=== PATIENT | male | born 1965 | race American Indian/Alaskan Native ===

== ENCOUNTER 2020-06-13 19:32 | Inpatient (IN) | payer OTHER ==
--- NOTE | 2020-06-13 20:07 | Consultation ---
History of Present Illness Consult date: 06/13/20 Medications and Allergies Allergies Allergy/AdvReac Type Severity Reaction Status Date / Time No Known Allergies Allergy Unverified 08/31/13 20:03 Home Medications Medication Instructions Recorded Confirmed Last Taken Type Amoxicillin [Trimox CAP] 500 mg PO Q8H #21 capsule 08/31/13 Unknown Rx predniSONE [Deltasone] 20 mg PO TID #15 tablet 08/31/13 Unknown Rx Physical Examination - Vital Signs Vital Signs: Vital Signs Temp Pulse Resp BP Pulse Ox 98.1 F 106 H 16 158/92 99 06/13/20 19:37 06/13/20 19:37 06/13/20 19:37 06/13/20 19:37 06/13/20 19:37 Results - Laboratory Findings CBC and BMP: 06/13/20 20:18 06/13/20 20:18 Abnormal Lab Findings: Abnormal Labs 06/13/20 19:58 POC Glucose 225 H Assessment and Plan [facility] Date of Service: 06/13/2020 19:43:54 Impression: Rule Out Acute Ischemic Stroke Right Hemispheric Infarct Comments/Sign-Out: left sided weakness, left sided ataxia (unclear if this is due to weakness or true ataxia), left facial droop, slurred speech, and left sided numbness- concerning for right hemispheric versus brainstem stroke Mechanism of Stroke: Not Clear Metrics: Last Known Well: 05/30/2020 12:00:00 [facility] Notification Time: 06/13/2020 19:43:18 Arrival Time: 06/13/2020 19:43:00 Stamp Time: 06/13/2020 19:43:54 Time First Login Attempt: 06/13/2020 19:47:14 Video Start Time: 06/13/2020 19:47:14 Symptoms: left sided numbness, difficulty walking NIHSS Start Assessment Time: 06/13/2020 19:52:12 Patient is not a candidate for Alteplase/Activase. Patient was not deemed candidate for Alteplase/Activase thrombolytics because of Last Well Known Above 4.5 Hours. Video End Time: 06/13/2020 20:00:44 CT head was reviewed and results were: hypodensity in right kirby radiata- ?subacute stroke Lower Likelihood of Large Vessel Occlusion but Following Stat Studies are Recommended CTA Head and Neck. Reviewed, No Indication of Large Vessel Occlusive Thrombus, Patient is not an SID Candidate. ED Physician notified of diagnostic impression and management plan on 06/13/2020 20:04:52 Our recommendations are outlined below. Recommendations: Activate Stroke Protocol Admission/Order Set Stroke/Telemetry Floor Neuro Checks Bedside Swallow Eval DVT Prophylaxis IV Fluids, Normal Saline Head of Bed 30 Degrees Euglycemia and Avoid Hyperthermia (PRN Acetaminophen) Antiplatelet Therapy Recommended Routine Consultation with Inhouse Neurology for Follow up Care Sign Out: Discussed with Emergency Department Provider History of Present Illness: Patient was brought by private transportation with symptoms of left sided numbness, difficulty walking 54 year old man presents with left sided numbness, difficulty walking, and off balance. He began having left arm numbness 2 weeks ago and it has been constant since it began (with some mild improvement yesterday but never completely resolved). He also has numbnes on the left side of his torso. The difficulty walking began 2 days ago and has been constant and worsening. Examination: BP(158/92), Pulse(106), Blood Glucose(225) 1A: Level of Consciousness - Alert; keenly responsive + 0 1B: Ask Month and Age - Both Questions Right + 0 1C: Blink Eyes & Squeeze Hands - Performs Both Tasks + 0 2: Test Horizontal Extraocular Movements - Normal + 0 3: Test Visual Cedeno - No Visual Loss + 0 4: Test Facial Palsy (Use Grimace if Obtunded) - Minor paralysis (flat nasolabial fold, smile asymmetry) + 1 5A: Test Left Arm Motor Drift - Drift, but doesn't hit bed + 1 5B: Test Right Arm Motor Drift - No Drift for 10 Seconds + 0 6A: Test Left Leg Motor Drift - Drift, but doesn't hit bed + 1 6B: Test Right Leg Motor Drift - No Drift for 5 Seconds + 0 7: Test Limb Ataxia (FNF/Heel-Alexis) - Ataxia in 2 Limbs + 2 8: Test Sensation - Mild-Moderate Loss: Less Sharp/More Dull + 1 9: Test Language/Aphasia - Normal; No aphasia + 0 10: Test Dysarthria - Mild-Moderate Dysarthria: Slurring but can be understood + 1 11: Test Extinction/Inattention - No abnormality + 0 NIHSS Score: 7 Patient/Family was informed the Neurology Consult would happen via TeleHealth consult by way of interactive audio and video telecommunications and consented to receiving care in this manner. Due to the immediate potential for life-threatening deterioration due to underly ing acute neurologic illness, I spent 25 minutes providing critical care. This time includes time for face to face visit via telemedicine, review of medical records, imaging studies and discussion of findings with providers, the patient and/or family. Dr Glenda Lerma [facility] Case [id number]
--- NOTE | 2020-06-13 20:07 | Cat Scan Report ---
CT HEAD WITHOUT CONTRAST INDICATION / CLINICAL INFORMATION: Stroke symptoms, left-sided weakness. Symptoms are of 2 days duration. TECHNIQUE: All CT scans at this location are performed using CT dose reduction for ALARA by means of automated e xposure control. COMPARISON: None available. FINDINGS: HEMORRHAGE: No evidence of intracranial hemorrhage or extra-axial fluid collection. EXTRA-AXIAL SPACES: Cortical sulci, sylvian fissures and basilar cisterns have an unremarkable appear ance. VENTRICULAR SYSTEM: The ventricular system is of normal size and configuration. CEREBRAL PARENCHYMA: There is a well circumscribed region of decreased brain parenchymal attenuation the right kirby radiata. This measures about 16 mm in greatest dimension. Findings are consistent wi th an acute infarction. There is no associated hemorrhage. MIDLINE SHIFT OR HERNIATION: There is no mass effect. CEREBELLUM / BRAINSTEM: Brainstem and cerebellum have an unremarkable appearance. MIDLINE STRUCTURES:No abnormalities of the pituitary gland or pineal region are identified. INTRACRANIAL VESSELS:No abnormalities are identified on this noncontrast head CT. ORBITS: visualized portions of the orbits have an unremarkable appearance. SOFT TISSUES of HEAD: No significant abnormality. CALVARIUM: Evaluation of bone windows reveals no abnormalities. PARANASAL SINUSES / MASTOID AIR CELLS: Paranasal sinuses are free from inflammatory mucosal disease. Mastoid air cells are normally pneumatized. ADDITIONAL FINDINGS: None. IMPRESSION: 1. Evidence of recent small deep infarction right kirby radiata. CODE STROKE: Time of Communication (SLAT TWISTER/CDT): 0265 Central standard time Licensed Practitioner Receiving Report: [facility] emergency physician. Signer Name: Brenton Biggs MD Signed: 06/13/2020 8:03 PM Workstation Name: [id number]
[2020-06-13 20:28] LABS: Basophils % (Auto) 0.6 % (0.0-1.8); Eosinophils # (Auto) 0.2 K/mm3 (0.0-0.4); Eosinophils % (Auto) 3.7 % (0.0-4.3); Hematocrit 34.9 % (35.5-45.6); Hemoglobin 11.6 gm/dl (11.8-15.2); Lymphocytes # (Auto) 1.8 K/mm3 (1.2-5.4); Lymphocytes % (Auto) 29.1 % (13.4-35.0); Mean Corpuscular HGB Conc 33 % (32-34); Mean Corpuscular Volume 73 fl (84-94); Monocytes # (Auto) 0.4 K/mm3 (0.0-0.8); Monocytes % (Auto) 6.1 % (0.0-7.3); Platelet Count 211 K/mm3 (140-440); Red Blood Count 4.79 M/mm3 (3.65-5.03); Red Cell Distribution Width 13.8 % (13.2-15.2)
[2020-06-13 20:39] LABS: INR 1.01 (0.87-1.13); Partial Thromboplastin Time 25.2 Sec. (24.2-36.6); Thrombin Time 17.5 Sec. (15.1-19.6)
--- NOTE | 2020-06-13 20:43 | Cat Scan Report ---
CTA neck without and with intravenous contrast material CLINICAL HISTORY: left sided weakness TECHNIQUE: Following acquisition of a timing bolus 0.625 mm thick contiguous axial scans were obtained from aort ic arch to the skull base during rapid bolus intravenous contrast infusion. In addition to evaluation of axial source images multiplanar reconstructions were produced and reviewed for this report. 3 mell ne MIP reconstructions were produced and reviewed. Contrast dose report: Omnipaque 350: 100 ml, administered intravenously All CT examinations performed at this facility utilize modulated dose reduction, iterative reconstruc tion or weight-based dosing, as appropriate, to obtain a radiation dose which is as low as can reason ably be achieved. FINDINGS: Thoracic aorta:No abnormalities are identified along the course of the thoracic aorta..The origins of the great vessels have an unremarkable appearance. Brachiocephalic artery, left common carotid arter y origin and left subclavian artery all have an unremarkable appearance. Right carotid artery:No abnormalities are seen along the course of the RCCA, at the right carotid bif urcation or along the cervical portions of the RITCHIE. Left carotid artery: No abnormalities are noted along the course of the left common carotid artery, a t the left carotid bifurcation or along the course of the cervical segments of the LICA. Posterior circulation:The vertebral arteries have an unremarkable appearance. Both vertebral arteries contribute to the basilar artery origin. The basilar artery has an unremarkable appearance. The degree of stenosis, if any, is determined utilizing NASCET like criteria. In this case there is no indication of hemodynamically significant stenosis at the carotid bifurcations or elsewhere. Evaluation of the nonvascular soft tissue structures reveal no abnormality. There is no indication of cervical lymphadenopathy. No abnormalities are seen along the course of the airway. Visualized porti ons of the parotid glands and the submandibular salivary glands have a normal appearance. Thyroid gla nd has a normal appearance. Evaluation of the lung apices reveals no evidence of lung nodule or infil trate. Evaluation of the cervical spine revealed no significant abnormalities. IMPRESSION: 1. Negative CTA neck. No indication of stenosis at the carotid bifurcation or elsewhere. Signer Name: Brenton Biggs MD Signed: 06/13/2020 8:39 PM Workstation Name: [id number]
[2020-06-13 20:45] LABS: Alanine Aminotransferase 22 units/L (7-56); Albumin 3.9 g/dL (3.9-5); BUN/Creatinine Ratio 9; Blood Urea Nitrogen 10 mg/dL (9-20); Calcium 9.2 mg/dL (8.4-10.2); Hemolysis Index 1
--- NOTE | 2020-06-13 20:48 | Cat Scan Report ---
CTA head with intravenous contrast CLINICAL HISTORY: left sided weakness TECHNIQUE: 0.625 mm thick contiguous axial scans were obtained from the skull base to the skull vertex during r apid bolus administration of intravenous contrast material. Multiplanar reconstructions were produced in the coronal and sagittal planes. In addition 3 plane MIP instructions were produced and reviewed for this report. The axial source images and reconstructed images were reviewed for this report. CONTRAST DOSE REPORT: Blank: Contrast dose ml administered intravenously. All CT scans at this location are performed using CT dose reduction for ALARA by means of automated e xposure control. FINDINGS: Internal carotid arteries:Jules, cavernous, opthalmic, clinoid and supraclinoid segments of the ICAs have an unremarkable appearance. Middle cerebral arteries:Normal and symmetrical M1 segments of the middle cerebral arteries are demon strated. No abnormalities are seen on evaluation of the insular or opercular branches. Anterior cerebral arteries:Bilaterally symmetrical A1 segments are demonstrated. No abnormalities are seen along the course of the A2 segments or their visualized pericallosal branches. Vertebral arteries:Bilaterally symmetrical vertebral arteries are demonstrated. Both vertebral arteri es contribute to the basilar artery origin. Basilar artery:Basilar artery has an unremarkable appearance. Posterior cerebral arteries: A large left-sided posterior communicating artery is identified. Bilater ally symmetrical posterior cerebral arteries are identified. Dural sinuses: Dural venous sinuses are well demonstrated on this exam. There is no evidence of dural sinus thrombosis. IMPRESSION: 1. No indication of large vessel occlusion or intracranial stenosis. Signer Name: Brenton Biggs MD Signed: 06/13/2020 8:44 PM Workstation Name: [id number]
--- NOTE | 2020-06-13 22:20 | Emergency Department Report ---
ED General Adult HPI - General Chief complaint: Neuro Symptoms/Deficit Stated complaint: NUMBNESS LT SIDE Time Seen by Provider: 06/13/20 20:00 Source: patient, family Mode of arrival: Ambulatory Limitations: No Limitations - History of Present Illness Initial comments: The patient presents to the emergency department with a chief complaint of left-sided weakness and falls. Patient states this morning he began to have issues walking due to his left side being weak. Patient endorses that 2 weeks ago he began to have numbness and tingling of his left side that got progressively worse. Patient denies any chest pain, shortness breath, or headache. -: Gradual Severity scale (0 -10): 0 Improves with: none Worsens with: none Associated Symptoms: denies other symptoms Treatments Prior to Arrival: none - Related Data Previous Rx's Medication Instructions Recorded Last Taken Type Amoxicillin [Trimox CAP] 500 mg PO Q8H #21 capsule 08/31/13 Unknown Rx predniSONE [Deltasone] 20 mg PO TID #15 tablet 08/31/13 Unknown Rx Allergies Allergy/AdvReac Type Severity Reaction Status Date / Time No Known Allergies Allergy Unverified 08/31/13 20:03 ED Review of Systems ROS: Stated complaint: NUMBNESS LT SIDE Other details as noted in HPI Constitutional: denies: chills, fever Eyes: denies: eye pain, eye discharge, vision change ENT: denies: ear pain, throat pain Respiratory: denies: cough, shortness of breath, wheezing Cardiovascular: denies: chest pain, palpitations Endocrine: no symptoms reported Gastrointestinal: denies: abdominal pain, nausea, diarrhea Genitourinary: denies: urgency, dysuria Musculoskeletal: denies: back pain, joint swelling, arthralgia Skin: denies: rash, lesions Neurological: weakness. denies: headache, paresthesias Psychiatric: denies: anxiety, depression Hematological/Lymphatic: denies: easy bleeding, easy bruising ED Past Medical Hx - Past Medical History Previous Medical History?: Yes Hx Hypertension: Yes Hx Diabetes: Yes - Surgical History Past Surgical History?: No - Social History Smoking Status: Never Smoker Substance Use Type: None - Medications Home Medications: Home Medications Medication Instructions Recorded Confirmed Last Taken Type Amoxicillin [Trimox CAP] 500 mg PO Q8H #21 capsule 08/31/13 Unknown Rx predniSONE [Deltasone] 20 mg PO TID #15 tablet 08/31/13 Unknown Rx ED Physical Exam - General Limitations: No Limitations General appearance: alert, in no apparent distress - Head Head exam: Present: atraumatic, normocephalic - Eye Eye exam: Present: normal appearance - ENT ENT exam: Present: mucous membranes moist - Neck Neck exam: Present: normal inspection - Respiratory Respiratory exam: Present: normal lung sounds bilaterally. Absent: respiratory distress - Cardiovascular Cardiovascular Exam: Present: regular rate, normal rhythm. Absent: systolic murmur, diastolic murmur, rubs, gallop - GI/Abdominal GI/Abdominal exam: Present: soft, normal bowel sounds. Absent: distended, tenderness - Rectal Rectal exam: Present: deferred - Extremities Exam Extremities exam: Present: normal inspection - Back Exam Back exam: Present: normal inspection - Neurological Exam Neurological exam: Present: alert, oriented X3, CN II-XII intact, other (Patient has 4 out of 5 strength of the left lower extremity) - Psychiatric Psychiatric exam: Present: normal affect, normal mood - Skin Skin exam: Present: warm, dry, intact, normal color. Absent: rash ED Course Vital Signs 06/13/20 06/13/20 19:37 20:20 Temperature 98.1 F Pulse Rate 106 H 85 Respiratory 16 Rate Blood Pressure 158/92 O2 Sat by Pulse 99 Oximetry ED Medical Decision Making - Lab Data Result diagrams: 06/13/20 20:18 06/13/20 20:18 Lab Results 06/13/20 06/13/20 06/13/20 Range/Units 19:58 20:18 20:18 WBC 6.3 (4.5-11.0) K/mm3 RBC 4.79 (3.65-5.03) M/mm3 Hgb 11.6 L (11.8-15.2) gm/dl Hct 34.9 L (35.5-45.6) % MCV 73 L (84-94) fl MCH 24 L (28-32) pg MCHC 33 (32-34) % RDW 13.8 (13.2-15.2) % Plt Count 211 (140-440) K/mm3 Lymph % (Auto) 29.1 (13.4-35.0) % [place] % (Auto) 6.1 (0.0-7.3) % Eos % (Auto) 3.7 (0.0-4.3) % Baso % (Auto) 0.6 (0.0-1.8) % Lymph # (Auto) 1.8 (1.2-5.4) K/mm3 [place] # (Auto) 0.4 (0.0-0.8) K/mm3 Eos # (Auto) 0.2 (0.0-0.4) K/mm3 Baso # (Auto) 0.0 (0.0-0.1) K/mm3 Seg Neutrophils % 60.5 (40.0-70.0) % Seg Neutrophils # 3.8 (1.8-7.7) K/mm3 PT 13.5 (12.2-14.9) Sec. INR 1.01 (0.87-1.13) APTT 25.2 (24.2-36.6) Sec. Thrombin Time 17.5 (15.1-19.6) Sec. Sodium (137-145) mmol/L Potassium (3.6-5.0) mmol/L Chloride (98-107) mmol/L Carbon Dioxide (22-30) mmol/L Anion Gap mmol/L BUN (9-20) mg/dL Creatinine (0.8-1.3) mg/dL Estimated GFR ml/min BUN/Creatinine Ratio % Glucose (75-100) mg/dL POC Glucose 225 H (70-105) mg/dL Calcium (8.4-10.2) mg/dL Total Bilirubin (0.1-1.2) mg/dL AST (5-40) units/L ALT (7-56) units/L Alkaline Phosphatase (35-129) units/L Total Creatine Kinase (55-170) units/L CK-MB (CK-2) (0.0-4.0) ng/mL CK-MB (CK-2) Rel Index (0-4) Troponin T (0.00-0.029) ng/mL Total Protein (6.3-8.2) g/dL Albumin (3.9-5) g/dL Albumin/Globulin Ratio % 06/13/20 Range/Units 20:18 WBC (4.5-11.0) K/mm3 RBC (3.65-5.03) M/mm3 Hgb (11.8-15.2) gm/dl Hct (35.5-45.6) % MCV (84-94) fl MCH (28-32) pg MCHC (32-34) % RDW (13.2-15.2) % Plt Count (140-440) K/mm3 Lymph % (Auto) (13.4-35.0) % [place] % (Auto) (0.0-7.3) % Eos % (Auto) (0.0-4.3) % Baso % (Auto) (0.0-1.8) % Lymph # (Auto) (1.2-5.4) K/mm3 [place] # (Auto) (0.0-0.8) K/mm3 Eos # (Auto) (0.0-0.4) K/mm3 Baso # (Auto) (0.0-0.1) K/mm3 Seg Neutrophils % (40.0-70.0) % Seg Neutrophils # (1.8-7.7) K/mm3 PT (12.2-14.9) Sec. INR (0.87-1.13) APTT (24.2-36.6) Sec. Thrombin Time (15.1-19.6) Sec. Sodium 135 L (137-145) mmol/L Potassium 3.9 (3.6-5.0) mmol/L Chloride 98.7 (98-107) mmol/L Carbon Dioxide 28 (22-30) mmol/L Anion Gap 12 mmol/L BUN 10 (9-20) mg/dL Creatinine 1.1 (0.8-1.3) mg/dL Estimated GFR > 60 ml/min BUN/Creatinine Ratio 9 % Glucose 257 H (75-100) mg/dL POC Glucose (70-105) mg/dL Calcium 9.2 (8.4-10.2) mg/dL Total Bilirubin 0.30 (0.1-1.2) mg/dL AST 14 (5-40) units/L ALT 22 (7-56) units/L Alkaline Phosphatase 68 (35-129) units/L Total Creatine Kinase 244 H (55-170) units/L CK-MB (CK-2) 3.0 (0.0-4.0) ng/mL CK-MB (CK-2) Rel Index 1.2 (0-4) Troponin T < 0.010 (0.00-0.029) ng/mL Total Protein 7.2 (6.3-8.2) g/dL Albumin 3.9 (3.9-5) g/dL Albumin/Globulin Ratio 1.2 % - EKG Data -: EKG Interpreted by Me EKG shows normal: sinus rhythm Rate: normal - Radiology Data Radiology results: report reviewed - Medical Decision Making Spoke to the neurologist due to the timeframe of the patient's symptomology TPA was not indicated Discussed results with patient Critical care attestation.: If time is entered above; I have spent that time in minutes in the direct care of this critically ill patient, excluding procedure time. ED Disposition Clinical Impression: CVA (cerebral vascular accident) Disposition: OP ADMIT IP TO THIS HOSP Is pt being admited?: Yes Does the pt Need Aspirin: Yes Condition: Fair Referrals: JAMES COTTERSATSUMA MD TANYA [Primary Care Provider] - 3-5 Days - Assessment Assessment Interval: Baseline - Level of Consciousness 1a. Level of Consciousness: alert/keenly responsive - LOC Questions 1b. LOC Questions: answers both correctly - LOC Command 1c. LOC Commands: performs tasks correctly - Best Gaze 2. Best Gaze: normal - Visual 3. Visual: no visual loss - Facial Palsy 4. Facial Palsy: minor paralysis - Motor Arm 5a. Motor Arm Left: drift 5b. Motor Arm Right: no drift - Motor Leg 6a. Motor Leg Left: drift 6b. Motor Leg Right: no drift - Limb Ataxia 7. Limb Ataxia: present 2 limbs - Sensory 8. Sensory: normal - Best Language 9. Best Language: mute/global aphasia - Dysarthria 10. Dysarthria: mild/moderate dysarthria - Extinction and Inattention 11. Extinction/Inattention: no abnormality - Scoring Total Score: 9 Stroke Severity: Moderate Stroke
[2020-06-13] MEDS ORDERED: ASPIRIN 81 MG TAB CHEW PO ONE (22:23)
[2020-06-13] MEDS ORDERED: ACETAMINOPHEN 325 MG TAB PO PRN (23:45)
[2020-06-13] MEDS ORDERED: DEXTROSE 50% IN WATER (25GM) 50 ML SYRINGE IV PRN (23:49)
--- NOTE | 2020-06-14 05:48 | History and Physical Report ---
History of Present Illness Date of examination: 06/13/20 Date of admission: 06/13/20 23:40 Chief complaint: LEFT SIDED WEAKNESS AND GAIT ABNORMALITY History of present illness: 54 year old male who started having left sided numbness that started 2 weeks ago. Patient developed weaknes of left side of the body and ataxia with frequent falls 24-48 hours prior to presentation and also had slurred speech. He was evaluated in the ER and and diagnosed with CVA. Past History Past Medical History: diabetes, hypertension Past Surgical History: No surgical history Social history: no significant social history Medications and Allergies Allergies Allergy/AdvReac Type Severity Reaction Status Date / Time No Known Allergies Allergy Verified 06/13/20 23:56 Home Medications Medication Instructions Recorded Confirmed Last Taken Type Amoxicillin [Trimox CAP] 500 mg PO Q8H #21 capsule 08/31/13 Unknown Rx predniSONE [Deltasone] 20 mg PO TID #15 tablet 08/31/13 Unknown Rx Active Meds: Active Medications Acetaminophen (Tylenol) 650 mg PO Q4H PRN PRN Reason: Headache Aspirin (Aspirin) 325 mg PO QDAY [facility] Atorvastatin Calcium (Lipitor) 80 mg PO QHS [facility] Dextrose (D50w (25gm) Syringe) 50 ml IV Q30MIN PRN; Protocol PRN Reason: Hypoglycemia Insulin Human Regular (Humulin R) 0 unit SUB-Q Q4HR [facility]; Protocol Review of Systems Constitutional: weakness, no fever, no chills Eyes: bilateral: other (no bilateral eye symptoms) Cardiovascular: no chest pain, no rapid/irregular heart beat, no syncope, no lightheadedness, no shortness of breath Respiratory: no cough, no cough with sputum, no excessive sputum, no shortness of breath, no dyspnea on exertion, no congestion, no wheezing Gastrointestinal: no abdominal pain, no nausea, no vomiting, no diarrhea, no constipation Genitourinary Male: no hematuria, no urinary hesitancy, no nocturia Rectal: no pain Musculoskeletal: no neck stiffness, no neck pain Integumentary: no rash, no pruritis, no redness, no sores, no wounds Neurological: weakness, numbness, tingling, ataxia, change in speech, gait dysfunction, no transient paralysis, no paralysis, no parathesias, no seizures, no syncope, no tremors, no vertigo, no headaches, no migraines, no convulsions, no aphasia, no change in mentation, no confusion, no sensory deficit, no double vision, no loss of vision, no hearing difficulties, no paralysis, no spasticity Psychiatric: no anxiety, no depression Endocrine: no polyphagia, no polydipsia, no polyuria, no nocturia, no excessive sweating Hematologic/Lymphatic: no easy bruising, no easy bleeding Exam - Constitutional Vitals: Temp Pulse Resp BP Pulse Ox 97.6 F 75 16 129/82 97 06/14/20 01:37 06/14/20 01:37 06/14/20 01:37 06/14/20 01:37 06/14/20 01:37 General appearance: Present: mild distress - EENT Eyes: Present: PERRL, EOM intact ENT: hearing intact, clear oral mucosa, dentition normal - Neck Neck: Present: supple - Respiratory Respiratory effort: normal - Cardiovascular Rhythm: regular Heart Sounds: Present: S1 & S2. Absent: systolic murmur, diastolic murmur, click - Extremities Extremities: no ischemia, No edema Peripheral Pulses: within normal limits - Abdominal General gastrointestinal: Present: soft, non-tender, non-distended. Absent: tender, distended, rigid Male genitourinary: Present: deferred - Rectal Rectal Exam: deferred - Integumentary Integumentary: Present: clear, warm, dry - Musculoskeletal Musculoskeletal: left sided weakness, generalized weakness - Psychiatric Psychiatric: appropriate mood/affect HEART Score - HEART Score Risk factors: 1-2 risk factors Troponin: Troponin T < 0.010 ng/mL (0.00-0.029) 06/13/20 20:18 Troponin: < normal limit - Critical Actions Critical Actions: 0-3 pts:0.9-1.7%risk of adverse cardiac event.Candidate for discharge Results - Labs CBC & Chem 7: 06/13/20 20:18 06/13/20 20:18 Labs: Laboratory Last Values WBC 6.3 K/mm3 (4.5-11.0) 06/13/20 20:18 RBC 4.79 M/mm3 (3.65-5.03) 06/13/20 20:18 Hgb 11.6 gm/dl (11.8-15.2) L 06/13/20 20:18 Hct 34.9 % (35.5-45.6) L 06/13/20 20:18 MCV 73 fl (84-94) L 06/13/20 20:18 MCH 24 pg (28-32) L 06/13/20 20:18 MCHC 33 % (32-34) 06/13/20 20:18 RDW 13.8 % (13.2-15.2) 06/13/20 20:18 Plt Count 211 K/mm3 (140-440) 06/13/20 20:18 Lymph % (Auto) 29.1 % (13.4-35.0) 06/13/20 20:18 [place] % (Auto) 6.1 % (0.0-7.3) 06/13/20 20:18 Eos % (Auto) 3.7 % (0.0-4.3) 06/13/20 20:18 Baso % (Auto) 0.6 % (0.0-1.8) 06/13/20 20:18 Lymph # (Auto) 1.8 K/mm3 (1.2-5.4) 06/13/20 20:18 [place] # (Auto) 0.4 K/mm3 (0.0-0.8) 06/13/20 20:18 Eos # (Auto) 0.2 K/mm3 (0.0-0.4) 06/13/20 20:18 Baso # (Auto) 0.0 K/mm3 (0.0-0.1) 06/13/20 20:18 Seg Neutrophils % 60.5 % (40.0-70.0) 06/13/20 20:18 Seg Neutrophils # 3.8 K/mm3 (1.8-7.7) 06/13/20 20:18 PT 13.5 Sec. (12.2-14.9) 06/13/20 20:18 INR 1.01 (0.87-1.13) 06/13/20 20:18 APTT 25.2 Sec. (24.2-36.6) 06/13/20 20:18 Thrombin Time 17.5 Sec. (15.1-19.6) 06/13/20 20:18 Sodium 135 mmol/L (137-145) L 06/13/20 20:18 Potassium 3.9 mmol/L (3.6-5.0) 06/13/20 20:18 Chloride 98.7 mmol/L (98-107) 06/13/20 20:18 Carbon Dioxide 28 mmol/L (22-30) 06/13/20 20:18 Anion Gap 12 mmol/L 06/13/20 20:18 BUN 10 mg/dL (9-20) 06/13/20 20:18 Creatinine 1.1 mg/dL (0.8-1.3) 06/13/20 20:18 Estimated GFR > 60 ml/min 06/13/20 20:18 BUN/Creatinine Ratio 9 % 06/13/20 20:18 Glucose 257 mg/dL (75-100) H 06/13/20 20:18 POC Glucose 192 mg/dL (70-105) H 06/14/20 02:50 Calcium 9.2 mg/dL (8.4-10.2) 06/13/20 20:18 Total Bilirubin 0.30 mg/dL (0.1-1.2) 06/13/20 20:18 AST 14 units/L (5-40) 06/13/20 20:18 ALT 22 units/L (7-56) 06/13/20 20:18 Alkaline Phosphatase 68 units/L (35-129) 06/13/20 20:18 Total Creatine Kinase 244 units/L (55-170) H 06/13/20 20:18 CK-MB (CK-2) 3.0 ng/mL (0.0-4.0) 06/13/20 20:18 CK-MB (CK-2) Rel Index 1.2 (0-4) 06/13/20 20:18 Troponin T < 0.010 ng/mL (0.00-0.029) 06/13/20 20:18 Total Protein 7.2 g/dL (6.3-8.2) 06/13/20 20:18 Albumin 3.9 g/dL (3.9-5) 06/13/20 20:18 Albumin/Globulin Ratio 1.2 % 06/13/20 20:18 Mack/IV: Voiding Method Urinal IV Catheter Type [Right INT / Saline Lock Antecubital] Assessment and Plan - Patient Problems (1) Diabetes Current Visit: Yes Status: Acute Plan to address problem: 1. ACCUCHECKS WITH SLIDING SCALE INSULIN COVERAGE (2) CVA (cerebral vascular accident) Current Visit: Yes Status: Acute Plan to address problem: 1. NPO UNTIL SWALLOW TEST PASSED 2. MRI BRAIN TO BE ORDERED WITH NEUROLOGY CONSULT 3. NEUROLOGY CONSULT WHEN AVAILABLE 4. PHYSICAL THERAPY CONSULT 5. SPEECH THERAPY CONSULT 6 ASPIRIN PO 7. ARTOVASTATIN PO 8. 2 D ECHOCARDIOGRAM
[2020-06-14] MEDS: INSULIN REGULAR, HUMAN 100 UNIT/ML 3ML VIAL SUB-Q SCH ×7 (07:36→22:18)
[2020-06-14] MEDS: ASPIRIN 325 MG TAB PO SCH (09:36)
--- NOTE | 2020-06-14 11:48 | Event Note ---
Date: 06/14/20 Patient admitted earlier this morning for the management of CVA with left-sided leg weakness and numbness. MRI ordered, telemetry neurology consulted in the EDput another consult for follow-up. Continue management as outlined in the H&P.
[2020-06-14] MEDS ORDERED: FLU VACC QUAD 2020-2021 (6 months +)/PF 60 0.5 ML SYRINGE IM ONE (12:00)
--- NOTE | 2020-06-14 13:45 | Magnetic Resonance Report ---
MRI BRAIN WITHOUT CONTRAST INDICATION / CLINICAL INFORMATION: cva. TECHNIQUE: Multiplanar, multisequence MR images of the brain were obtained. COMPARISON: None available. FINDINGS: BRAIN / INTRACRANIAL CONTENTS: There is a small acute infarct in the right gangliocapsular region. Th ere is no associated hemorrhage or adverse mass effect. There is no additional acute infarct. There a re mild chronic small vessel ischemic changes in the cerebral white matter. Ventricular and cisternal size appears normal for age. CRANIOCERVICAL JUNCTION: No significant abnormality. VASCULAR FLOW-VOIDS: No significant abnormality. ORBITS: No significant abnormality of visualized orbits. SINUSES / MASTOIDS: No significant abnormality of visualized sinuses and mastoid air cells. ADDITIONAL FINDINGS: None. IMPRESSION: 1. Small acute infarct in the right gangliocapsular region. No associated hemorrhage or adverse mass effect. Signer Name: Emmett Pichardo MD Signed: 06/14/2020 1:41 PM Workstation Name: [id number]
--- NOTE | 2020-06-14 15:33 | Consultation ---
History of Present Illness Consult date: 06/14/20 Reason for Consult: CVA Chief complaint: Weakness History of present illness: 54 yo male with htn, dm, who presents with an episode 2 weeks ago with left hand numbness that occurred twice within a 48 hour period and then noted 48 hours prior to admission with left sided weakness. His was concerned about this walking and initially thought he was drunk but the patient notes that he felt incoordinated on the left with the left-sided weakness. Notes slurred speech also in the last 48 hours. No tPA or WILBER. Past History Past Medical History: diabetes, hypertension Past Surgical History: No surgical history Social history: no significant social history Medications and Allergies Allergies Allergy/AdvReac Type Severity Reaction Status Date / Time No Known Allergies Allergy Verified 06/13/20 23:56 Home Medications Medication Instructions Recorded Confirmed Last Taken Type Amoxicillin [Trimox CAP] 500 mg PO Q8H #21 capsule 08/31/13 Unknown Rx predniSONE [Deltasone] 20 mg PO TID #15 tablet 08/31/13 Unknown Rx Active Meds: Active Medications Acetaminophen (Tylenol) 650 mg PO Q4H PRN PRN Reason: Headache Aspirin (Aspirin) 325 mg PO QDAY [facility] Last Admin: 06/14/20 09:36 Dose: 325 mg Documented by: Atorvastatin Calcium (Lipitor) 80 mg PO QHS [facility] Dextrose (D50w (25gm) Syringe) 50 ml IV Q30MIN PRN; Protocol PRN Reason: Hypoglycemia Insulin Human Regular (Humulin R) 0 unit SUB-Q Q4HR [facility]; Protocol Last Admin: 06/14/20 07:46 Dose: 3 unit Documented by: Review of Systems All systems: negative (except as per HPI;) Physical Examination - Vital Signs Vital Signs: Vital Signs Temp Pulse Resp BP Pulse Ox 98.1 F 106 H 16 158/92 99 06/13/20 19:37 06/13/20 19:37 06/13/20 19:37 06/13/20 19:37 06/13/20 19:37 - Additional Exam Additional Exam: Gen: nad, well-nourished; Head: normocephalic; Eyes: no gaze deviation; no ptosis; ENT: normal vocalization; CVS: warm and well-perfused; Pulm: no respiratory distress;; GI: non-distended, protuberant; Ext: no cyanosis or edema at distal extremities; Skin: no acute rash or hives at distal extremities; Heme: no pathologic bruising or ecchymosis at distal extremities; Neuro: alert, oriented to name, age, month, year, surroundings, mild dysarthria, no aphasia, CN 2 - PERRL, visual lennon intact, CN 3, 4, 6 - EOMI, CN 5 - facial decreased on left to light touch, CN 7 - facial movement symmetric, CN 8 - hearing grossly intact, CN 9, 10 - uvula midline, CN 11 - shrug symmetric, CN 12 - tongue midline; Motor - at least 4+/5 at right exts and at least 3/5 at left exts; Sensory - light touch decreased at left exts, Cerebellar - fnf /hts difficulty secondary to weakness at left exts, Gait - deferred secondary to fall risk; NIHSS (1a.) Level of Consciousness:0 (1b.) LOC Questions:0 (1c.) LOC Commands:0 (2.) Best Gaze:0 (3.) Visual:0 (4.) Facial Palsy:1 (5a.) Motor Arm, Left:1 (5b.) Motor Arm, Right:0 (6a.) Motor Leg, Left:1 (6b.) Motor Leg, Right:0 (7.) Limb Ataxia:0 (8.) Sensory:1 (9.) Best Language:0 (10.) Dysarthria:0 (11.) Extinction and Inattention:0 NIHSS Total Score: 4 Results - Laboratory Findings CBC and BMP: 06/13/20 20:18 06/13/20 20:18 Abnormal Lab Findings: Abnormal Labs 06/13/20 06/13/20 06/13/20 19:58 20:18 20:18 Hgb 11.6 L Hct 34.9 L MCV 73 L MCH 24 L Sodium 135 L Glucose 257 H POC Glucose 225 H Total Creatine Kinase 244 H 06/14/20 06/14/20 06/14/20 02:50 06:31 09:05 Hgb Hct MCV MCH Sodium Glucose POC Glucose 192 H 287 H 238 H Total Creatine Kinase Assessment and Plan 54 yo male with htn, dm, who presents with an acute right capsular-ganglion ischemic stroke with left-sided weakness/paresthesias w/ dysarthria. PLAN 1. Acute Ischemic Stroke: ASA 325 mg PO qday, MRI images not available to me for review; unremarkable CTA Head/Neck w/ & w/o contrast, pending results of TTEcho, confirm LDL/HgbA1C/TSH, baseline EKG; telemetry, SBP goal 160-200 mmHg and DBP 80-100 mmHg for now. Statin therapy for a goal LDL of 70, when patient passes swallow evaluation. PT/OT/ST/Swallow evaluation. Long-term risk-factor modification, including a strict diet/exercise regimen for secondary stroke prop hylaxis. 2. Hypertension - goal SBP 160-200 mmHg and DBP 80-200 mmHg for 24 more hours and then slowly normalize. 3. Diabetes Mellitus - maintain euglycemia. 4. Dyslipidemia - goal LDL of 70 w/ statin therapy if no contraindications. 5. Dysarthria / Dysphagia - st / swallow evaluation/monitoring. 6. Left-sided weakness - pt/ot evaluation/monitoring. 7. Unsteady Gait - pt/ot evaluation/monitoring. 8. Alcohol abuse - advised pt to stop drinking; consider outpatient cessation program. Chan Garcia MD Neurology
[2020-06-14 15:59] LABS: Chol/HDL Ratio 4.3 %
[2020-06-15] MEDS: INSULIN REGULAR, HUMAN 100 UNIT/ML 3ML VIAL SUB-Q SCH ×7 (06:33→22:50)
[2020-06-15 07:00] LABS: BUN/Creatinine Ratio 14; Blood Urea Nitrogen 14 mg/dL (9-20); Calcium 9.3 mg/dL (8.4-10.2); Hemolysis Index 0
[2020-06-15] MEDS: ASPIRIN 325 MG TAB PO SCH (09:05)
--- NOTE | 2020-06-15 11:56 | Progress Note ---
Assessment and Plan Assessment and plan: Acute CVA, with right leg weakness -Small acute infarct on the right gangliocapsular region -Echo negative for shunt -Neurology consult appreciated -Patient is on aspirin and statin -PT OT evaluated the patient and recommended acute rehab Hyperlipidemia -Patient is on atorvastatin Patient has diabetes mellitus but was not on any medication -I have counseled about it -I put him on sliding scale insulin, ADA diet, Accu-Chek and adjust insulin as needed -I am going to check hemoglobin A1c DVT prophylaxis -On heparin Disposition -Pending acute rehab placement History Interval history: Patient was seen and evaluated this morning, and has left leg weakness. Patient does not have any complaints other than the weakness on the left leg Hospitalist Physical - Physical exam Narrative exam: Not in cardiopulmonary distress. The patient appeared well nourished and normally developed. Vital signs as documented. Head exam is unremarkable. No scleral icterus . Neck is without jugular venous distension, thyromegaly, or carotid bruits. Lungs are clear to auscultation. Cardiac exam reveals regular rate and Rhythm. Abdominal exam reveals normal bowel sounds, nontender, no organomegaly. Extremities are nonedematous and both femoral and pedal pulses are normal. [employer]: Alert and oriented 3. Left leg weakness, power is 4 out of 5 - Constitutional Vitals: Temp Pulse Resp BP Pulse Ox 97.2 F L 78 18 127/78 98 06/15/20 08:14 06/15/20 08:14 06/15/20 08:14 06/15/20 08:14 06/15/20 09:51 General appearance: Present: mild distress HEART Score - HEART Score Risk factors: 1-2 risk factors Troponin: Troponin T < 0.010 ng/mL (0.00-0.029) 06/13/20 20:18 Troponin: < normal limit - Critical Actions Critical Actions: 0-3 pts:0.9-1.7%risk of adverse cardiac event.Candidate for discharge Results - Labs CBC & Chem 7: 06/13/20 20:18 06/15/20 04:33 Labs: Laboratory Last Values WBC 6.3 K/mm3 (4.5-11.0) 06/13/20 20:18 RBC 4.79 M/mm3 (3.65-5.03) 06/13/20 20:18 Hgb 11.6 gm/dl (11.8-15.2) L 06/13/20 20:18 Hct 34.9 % (35.5-45.6) L 06/13/20 20:18 MCV 73 fl (84-94) L 06/13/20 20:18 MCH 24 pg (28-32) L 06/13/20 20:18 MCHC 33 % (32-34) 06/13/20 20:18 RDW 13.8 % (13.2-15.2) 06/13/20 20:18 Plt Count 211 K/mm3 (140-440) 06/13/20 20:18 Lymph % (Auto) 29.1 % (13.4-35.0) 06/13/20 20:18 [place] % (Auto) 6.1 % (0.0-7.3) 06/13/20 20:18 Eos % (Auto) 3.7 % (0.0-4.3) 06/13/20 20:18 Baso % (Auto) 0.6 % (0.0-1.8) 06/13/20 20:18 Lymph # (Auto) 1.8 K/mm3 (1.2-5.4) 06/13/20 20:18 [place] # (Auto) 0.4 K/mm3 (0.0-0.8) 06/13/20 20:18 Eos # (Auto) 0.2 K/mm3 (0.0-0.4) 06/13/20 20:18 Baso # (Auto) 0.0 K/mm3 (0.0-0.1) 06/13/20 20:18 Seg Neutrophils % 60.5 % (40.0-70.0) 06/13/20 20:18 Seg Neutrophils # 3.8 K/mm3 (1.8-7.7) 06/13/20 20:18 PT 13.5 Sec. (12.2-14.9) 06/13/20 20:18 INR 1.01 (0.87-1.13) 06/13/20 20:18 APTT 25.2 Sec. (24.2-36.6) 06/13/20 20:18 Thrombin Time 17.5 Sec. (15.1-19.6) 06/13/20 20:18 Sodium 141 mmol/L (137-145) 06/15/20 04:33 Potassium 4.1 mmol/L (3.6-5.0) 06/15/20 04:33 Chloride 104.4 mmol/L (98-107) 06/15/20 04:33 Carbon Dioxide 27 mmol/L (22-30) 06/15/20 04:33 Anion Gap 14 mmol/L 06/15/20 04:33 BUN 14 mg/dL (9-20) 06/15/20 04:33 Creatinine 1.0 mg/dL (0.8-1.3) 06/15/20 04:33 Estimated GFR > 60 ml/min 06/15/20 04:33 BUN/Creatinine Ratio 14 % 06/15/20 04:33 Glucose 170 mg/dL (75-100) H 06/15/20 04:33 POC Glucose 198 mg/dL (70-105) H 06/15/20 11:30 Calcium 9.3 mg/dL (8.4-10.2) 06/15/20 04:33 Total Bilirubin 0.30 mg/dL (0.1-1.2) 06/13/20 20:18 AST 14 units/L (5-40) 06/13/20 20:18 ALT 22 units/L (7-56) 06/13/20 20:18 Alkaline Phosphatase 68 units/L (35-129) 06/13/20 20:18 Total Creatine Kinase 244 units/L (55-170) H 06/13/20 20:18 CK-MB (CK-2) 3.0 ng/mL (0.0-4.0) 06/13/20 20:18 CK-MB (CK-2) Rel Index 1.2 (0-4) 06/13/20 20:18 Troponin T < 0.010 ng/mL (0.00-0.029) 06/13/20 20:18 Total Protein 7.2 g/dL (6.3-8.2) 06/13/20 20:18 Albumin 3.9 g/dL (3.9-5) 06/13/20 20:18 Albumin/Globulin Ratio 1.2 % 06/13/20 20:18 Triglycerides 117 mg/dL (2-149) 06/14/20 14:46 Cholesterol 172 mg/dL (50-199) 06/14/20 14:46 LDL Cholesterol Direct 119 mg/dL (50-130) 06/14/20 14:46 HDL Cholesterol 40 mg/dL (40-59) 06/14/20 14:46 Cholesterol/HDL Ratio 4.30 % 06/14/20 14:46 - Diagnostic Impressions Diagnostic Impressions: Echocardiogram 06/13/20 23:44 Transthoracic Echocardiogram Indication: Stroke BP: 120/73 HR: 80 Conclusions *The left ventricular chamber size is normal. *Global left ventricular wall motion and contractility are within normal limits. *The estimated ejection fraction is 55-60%. *Abnormal left ventricular diastolic filling is observed, consistent with impaired relaxation. *The aortic valve leaflets are mildly thickened. *There is trace of mitral regurgitation. *There is trace tricuspid regurgitation. *The right ventricular systolic pressure is calculated at 13 mmHg. *Intravenous agitated saline contrast was used to assess intracardiac shunting. .Negative for shunt Findings Left Ventricle: The left ventricular chamber size is normal. Global left ventricular wall motion and contractility are within normal limits. Global left ventricular systolic function is normal. The estimated ejection fraction is 55-60%. Abnormal left ventricular diastolic filling is observed, consistent with impaired relaxation. Right Ventricle: The right ventricular cavity size is normal. Right Atrium: The right atrial cavity size is normal. No atrial septal defected is demonstrated by agitated saline contrast. Aortic Valve: The aortic valve leaflets are mildly thickened. Mitral Valve: The mitral valve leaflets are mildly thickened. There is trace of mitral regurgitation. Tricuspid Valve: The tricuspid valve leaflets are normal. There is trace tricuspid regurgitation. The right ventricular systolic pressure is calculated at 13 mmHg. Pulmonic Valve: The pulmonic valve appears normal. Pericardium: There is no pericardial effusion. Aorta: The aorta appears normal. Venous: The inferior vena cava appears normal. Contrast: Intravenous agitated saline contrast was used to assess intracardiac shunting. Measurements Chambers 2D Name Value Normal Range IVSd (2D) 1.05 cm (0.6 - 1.1) LVPWd (2D) 1.05 cm (0.6 - 1.1) LVIDd (2D) 4.73 cm (3.7 - 5.6) LVIDs (2D) 3.03 cm (2 - 3.8) LV FS (2D) 35.9 % - EF Teichholz (2D) 65.44 % - Ao root diameter (2D) 2.96 cm (2 - 3.7) Volumes/Mass Name Value Normal Range LA ESV SP 4CH (A/L) 28.63 ml - LA ESV SP 2CH (A/L) 32.7 ml - LA ESV BP (A/L) 32.17 ml - LA ESV BP (A/L) index 15.93 ml/m2 - LA ESV SP 4CH (MOD) 26.46 ml - LA ESV SP 2CH (MOD) 31.2 ml - LA ESV BP (MOD) 30.16 ml - LA ESV BP (MOD) index 14.93 ml/m2 - Diastolic/Systolic Function Name Value Normal Range MV E-wave Vmax 0.6 m/sec - MV deceleration time 230.28 msec - MV A-wave Vmax 0.69 m/sec - MV E:A ratio 0.86 ratio - Aortic Valve Name Value Normal Range AV Vmax 1.35 m/sec - AV VTI 24.14 cm - AV peak gradient 7.32 mmHg - AV mean gradient 4.31 mmHg - LVOT diameter 2.04 cm - LVOT Vmax 1.18 m/sec - LVOT VTI 21.71 cm - LVOT peak gradient 5.58 mmHg - LVOT mean gradient 2.96 mmHg - SV LVOT 71.23 ml - CORNELIO (continuity Vmax) 2.87 cm2 - CORNELIO (continuity VTI) 2.95 cm2 - Mitral Valve Name Value Normal Range MR Vmax 3.65 m/sec - Tricuspid Valve Name Value Normal Range TR Vmax 1.59 m/sec - TR peak gradient 10 mmHg - RAP 3 mmHg - RVSP 13 mmHg - Pulmonic Valve/Qp:Qs Name Value Normal Range PV Vmax 0.87 m/sec - PV peak gradient 3.05 mmHg - PV acceleration time 83.73 msec - Mack/IV: Voiding Method Urinal IV Catheter Type [Right INT / Saline Lock Antecubital] Active Medications - Current Medications Current Medications: Generic Name Dose Route Start Last Admin Trade Name Freq PRN Reason Stop Dose Admin Acetaminophen 650 mg 06/13/20 23:45 Tylenol PO Q4H PRN Headache Aspirin 325 mg 06/14/20 10:00 06/15/20 09:05 Aspirin PO 325 mg QDAY [facility] Administration Atorvastatin Calcium 80 mg 06/14/20 22:00 06/14/20 22:17 Lipitor PO 80 mg QHS [facility] Administration Insulin Human Regular 0 unit 06/15/20 07:30 06/15/20 09:05 Humulin R SUB-Q 2 unit ACHS [facility] Administration Protocol
[2020-06-15] MEDS: HEPARIN 5,000 UNIT/1 ML VIAL SUB-Q SCH ×2 (14:39→22:50)
[2020-06-16] MEDS: HEPARIN 5,000 UNIT/1 ML VIAL SUB-Q SCH ×3 (06:34→22:50)
[2020-06-16] MEDS: INSULIN REGULAR, HUMAN 100 UNIT/ML 3ML VIAL SUB-Q SCH (09:32)
[2020-06-16] MEDS: ASPIRIN 325 MG TAB PO SCH (09:32)
[2020-06-16] MEDS ORDERED: DEXTROSE 50% IN WATER (25GM) 50 ML SYRINGE IV PRN (11:25)
--- NOTE | 2020-06-16 11:29 | Progress Note ---
Assessment and Plan Assessment and plan: Acute CVA, with right leg weakness -Small acute infarct on the right gangliocapsular region -Echo negative for shunt -Neurology consult appreciated -Patient is on aspirin and statin -PT OT evaluated the patient and recommended acute rehab Hyperlipidemia -Patient is on atorvastatin Diabetes mellitus -Patient has diabetes mellitus but was not on any medication as he was in denial as per him -Hemoglobin A1c 9.5 -Starts Humulin 70/30 8 units twice daily for now on a sliding scale. -Change diet to consistent carb diet DVT prophylaxis -On heparin Disposition -Pending acute rehab placement History Interval history: Has no new complaints HbA1c is 9.5. Started him on humulin 70/30. Pending rehab placement Hospitalist Physical - Physical exam Narrative exam: VITAL SIGNS: Reviewed. GENERAL: Awake and alert on response to questions HEAD: No signs of head trauma. EYES: Pupils are equal. Extraocular motions intact. EARS: Hearing grossly intact. MOUTH: Oropharynx is normal. NECK: No adenopathy, no JVD. CHEST: Chest with diminished breath sounds bilaterally. No wheezes, rales, or rhonchi. CARDIAC: Regular rate and rhythm. S1 and S2, without murmurs, gallops, or r ubs. VASCULAR: No Edema. Peripheral pulses normal and equal in all extremities. ABDOMEN: Soft, non tender and non distended. No rebound or guarding, and no masses palpated. Bowel Sounds normal. MUSCULOSKELETAL: Good range of motion of all major joints. Extremities without clubbing, cyanosis or edema. NEUROLOGIC EXAM: Alert and oriented x3. Left sided weakness - Power 4/5 on the LUE and LLE PSYCHIATRIC: Stable mood SKIN: No obvious lesions - Constitutional Vitals: Temp Pulse Resp BP Pulse Ox 98.3 F 90 18 127/81 97 06/16/20 03:26 06/16/20 07:34 06/16/20 07:34 06/16/20 03:26 06/16/20 03:26 HEART Score - HEART Score Risk factors: 1-2 risk factors Troponin: Troponin T < 0.010 ng/mL (0.00-0.029) 06/13/20 20:18 Troponin: < normal limit - Critical Actions Critical Actions: 0-3 pts:0.9-1.7%risk of adverse cardiac event.Candidate for discharge Results - Labs CBC & Chem 7: 06/13/20 20:18 06/15/20 04:33 Labs: Laboratory Last Values WBC 6.3 K/mm3 (4.5-11.0) 06/13/20 20:18 RBC 4.79 M/mm3 (3.65-5.03) 06/13/20 20:18 Hgb 11.6 gm/dl (11.8-15.2) L 06/13/20 20:18 Hct 34.9 % (35.5-45.6) L 06/13/20 20:18 MCV 73 fl (84-94) L 06/13/20 20:18 MCH 24 pg (28-32) L 06/13/20 20:18 MCHC 33 % (32-34) 06/13/20 20:18 RDW 13.8 % (13.2-15.2) 06/13/20 20:18 Plt Count 211 K/mm3 (140-440) 06/13/20 20:18 Lymph % (Auto) 29.1 % (13.4-35.0) 06/13/20 20:18 [place] % (Auto) 6.1 % (0.0-7.3) 06/13/20 20:18 Eos % (Auto) 3.7 % (0.0-4.3) 06/13/20 20:18 Baso % (Auto) 0.6 % (0.0-1.8) 06/13/20 20:18 Lymph # (Auto) 1.8 K/mm3 (1.2-5.4) 06/13/20 20:18 [place] # (Auto) 0.4 K/mm3 (0.0-0.8) 06/13/20 20:18 Eos # (Auto) 0.2 K/mm3 (0.0-0.4) 06/13/20 20:18 Baso # (Auto) 0.0 K/mm3 (0.0-0.1) 06/13/20 20:18 Seg Neutrophils % 60.5 % (40.0-70.0) 06/13/20 20:18 Seg Neutrophils # 3.8 K/mm3 (1.8-7.7) 06/13/20 20:18 PT 13.5 Sec. (12.2-14.9) 06/13/20 20:18 INR 1.01 (0.87-1.13) 06/13/20 20:18 APTT 25.2 Sec. (24.2-36.6) 06/13/20 20:18 Thrombin Time 17.5 Sec. (15.1-19.6) 06/13/20 20:18 Sodium 141 mmol/L (137-145) 06/15/20 04:33 Potassium 4.1 mmol/L (3.6-5.0) 06/15/20 04:33 Chloride 104.4 mmol/L (98-107) 06/15/20 04:33 Carbon Dioxide 27 mmol/L (22-30) 06/15/20 04:33 Anion Gap 14 mmol/L 06/15/20 04:33 BUN 14 mg/dL (9-20) 06/15/20 04:33 Creatinine 1.0 mg/dL (0.8-1.3) 06/15/20 04:33 Estimated GFR > 60 ml/min 06/15/20 04:33 BUN/Creatinine Ratio 14 % 06/15/20 04:33 Glucose 170 mg/dL (75-100) H 06/15/20 04:33 POC Glucose 204 mg/dL (70-105) H 06/16/20 07:48 Hemoglobin A1c 9.2 % (4-6) H 06/15/20 15:31 Calcium 9.3 mg/dL (8.4-10.2) 06/15/20 04:33 Total Bilirubin 0.30 mg/dL (0.1-1.2) 06/13/20 20:18 AST 14 units/L (5-40) 06/13/20 20:18 ALT 22 units/L (7-56) 06/13/20 20:18 Alkaline Phosphatase 68 units/L (35-129) 06/13/20 20:18 Total Creatine Kinase 244 units/L (55-170) H 06/13/20 20:18 CK-MB (CK-2) 3.0 ng/mL (0.0-4.0) 06/13/20 20:18 CK-MB (CK-2) Rel Index 1.2 (0-4) 06/13/20 20:18 Troponin T < 0.010 ng/mL (0.00-0.029) 06/13/20 20:18 Total Protein 7.2 g/dL (6.3-8.2) 06/13/20 20:18 Albumin 3.9 g/dL (3.9-5) 06/13/20 20:18 Albumin/Globulin Ratio 1.2 % 06/13/20 20:18 Triglycerides 117 mg/dL (2-149) 06/14/20 14:46 Cholesterol 172 mg/dL (50-199) 06/14/20 14:46 LDL Cholesterol Direct 119 mg/dL (50-130) 06/14/20 14:46 HDL Cholesterol 40 mg/dL (40-59) 06/14/20 14:46 Cholesterol/HDL Ratio 4.30 % 06/14/20 14:46 - Diagnostic Impressions Diagnostic Impressions: Echocardiogram 06/13/20 23:44 Transthoracic Echocardiogram Indication: Stroke BP: 120/73 HR: 80 Conclusions *The left ventricular chamber size is normal. *Global left ventricular wall motion and contractility are within normal limits. *The estimated ejection fraction is 55-60%. *Abnormal left ventricular diastolic filling is observed, consistent with impaired relaxation. *The aortic valve leaflets are mildly thickened. *There is trace of mitral regurgitation. *There is trace tricuspid regurgitation. *The right ventricular systolic pressure is calculated at 13 mmHg. *Intravenous agitated saline contrast was used to assess intracardiac shunting. .Negative for shunt Findings Left Ventricle: The left ventricular chamber size is normal. Global left ventricular wall motion and contractility are within normal limits. Global left ventricular systolic function is normal. The estimated ejection fraction is 55-60%. Abnormal left ventricular diastolic filling is observed, consistent with impaired relaxation. Right Ventricle: The right ventricular cavity size is normal. Right Atrium: The right atrial cavity size is normal. No atrial septal defected is demonstrated by agitated saline contrast. Aortic Valve: The aortic valve leaflets are mildly thickened. Mitral Valve: The mitral valve leaflets are mildly thickened. There is trace of mitral regurgitation. Tricuspid Valve: The tricuspid valve leaflets are normal. There is trace tricuspid regurgitation. The right ventricular systolic pressure is calculated at 13 mmHg. Pulmonic Valve: The pulmonic valve appears normal. Pericardium: There is no pericardial effusion. Aorta: The aorta appears normal. Venous: The inferior vena cava appears normal. Contrast: Intravenous agitated saline contrast was used to assess intracardiac shunting. Measurements Chambers 2D Name Value Normal Range IVSd (2D) 1.05 cm (0.6 - 1.1) LVPWd (2D) 1.05 cm (0.6 - 1.1) LVIDd (2D) 4.73 cm (3.7 - 5.6) LVIDs (2D) 3.03 cm (2 - 3.8) LV FS (2D) 35.9 % - EF Teichholz (2D) 65.44 % - Ao root diameter (2D) 2.96 cm (2 - 3.7) Volumes/Mass Name Value Normal Range LA ESV SP 4CH (A/L) 28.63 ml - LA ESV SP 2CH (A/L) 32.7 ml - LA ESV BP (A/L) 32.17 ml - LA ESV BP (A/L) index 15.93 ml/m2 - LA ESV SP 4CH (MOD) 26.46 ml - LA ESV SP 2CH (MOD) 31.2 ml - LA ESV BP (MOD) 30.16 ml - LA ESV BP (MOD) index 14.93 ml/m2 - Diastolic/Systolic Function Name Value Normal Range MV E-wave Vmax 0.6 m/sec - MV deceleration time 230.28 msec - MV A-wave Vmax 0.69 m/sec - MV E:A ratio 0.86 ratio - Aortic Valve Name Value Normal Range AV Vmax 1.35 m/sec - AV VTI 24.14 cm - AV peak gradient 7.32 mmHg - AV mean gradient 4.31 mmHg - LVOT diameter 2.04 cm - LVOT Vmax 1.18 m/sec - LVOT VTI 21.71 cm - LVOT peak gradient 5.58 mmHg - LVOT mean gradient 2.96 mmHg - SV LVOT 71.23 ml - CORNELIO (continuity Vmax) 2.87 cm2 - CORNELIO (continuity VTI) 2.95 cm2 - Mitral Valve Name Value Normal Range MR Vmax 3.65 m/sec - Tricuspid Valve Name Value Normal Range TR Vmax 1.59 m/sec - TR peak gradient 10 mmHg - RAP 3 mmHg - RVSP 13 mmHg - Pulmonic Valve/Qp:Qs Name Value Normal Range PV Vmax 0.87 m/sec - PV peak gradient 3.05 mmHg - PV acceleration time 83.73 msec - Mack/IV: Voiding Method Urinal IV Catheter Type [Right INT / Saline Lock Antecubital] Active Medications - Current Medications Current Medications: Generic Name Dose Route Start Last Admin Trade Name Freq PRN Reason Stop Dose Admin Acetaminophen 650 mg 06/13/20 23:45 Tylenol PO Q4H PRN Headache Aspirin 325 mg 06/14/20 10:00 06/16/20 09:32 Aspirin PO 325 mg QDAY SOLITARIO Administration Atorvastatin Calcium 80 mg 06/14/20 22:00 06/15/20 22:50 Lipitor PO 80 mg QHS SOLITARIO Administration Dextrose 50 ml 06/16/20 11:25 D50w (25gm) Syringe IV Q30MIN PRN Hypoglycemia Protocol Heparin Sodium (Porcine) 5,000 unit 06/15/20 14:00 06/16/20 06:34 Heparin SUB-Q 5,000 unit Q8HR SOLITARIO Administration Insulin Human Isoph/Insulin Regular 8 unit 06/16/20 17:00 Humulin 70/30 SUB-Q BIDDIAB SOLITARIO Insulin Human Lispro 0 unit 06/16/20 11:30 Humalog SUB-Q ACHS SOLITARIO Protocol
[2020-06-16] MEDS: INSULIN LISPRO 100 UNIT/ML VIAL 3 mL SUB-Q SCH ×3 (12:05→22:50)
[2020-06-16] MEDS: INSULIN NPH/REGULAR 70/30 INJ SUB-Q SCH (16:10)
[2020-06-17] MEDS: HEPARIN 5,000 UNIT/1 ML VIAL SUB-Q SCH ×2 (06:31→13:14)
[2020-06-17] MEDS: INSULIN NPH/REGULAR 70/30 INJ SUB-Q SCH ×2 (08:00→18:32)
[2020-06-17] MEDS: INSULIN LISPRO 100 UNIT/ML VIAL 3 mL SUB-Q SCH ×3 (09:15→16:53)
[2020-06-17] MEDS: ASPIRIN 325 MG TAB PO SCH (11:17)
--- NOTE | 2020-06-17 15:10 | Discharge Summary ---
Providers - Providers Date of Admission: 06/13/20 23:40 Date of discharge: 06/17/20 Attending physician: BENY RUSSELL 06/13/20 23:41 Speech Therapy Evaluation and Treat [CONS] Routine Reason For Exam: CVA WITH SPEECH IMPAIRMENT 06/14/20 06:00 Physical Therapy Evaluation and Treat [CONS] Routine Comment: Reason For Exam: CVA WITH LEFT SIDED WEAKNESS 06/14/20 08:56 Consult to Physician [CONS] Routine Comment: Consulting Provider: WILLOW PEÑA Physician Instructions: Reason For Exam: cva [facility] Condition: Fair Hospital course: 54 year old male with diabetes mellitus [not in medications] admitted with left sided numbness that started 2 weeks ago. Patient developed weaknes of left side of the body and ataxia with frequent falls 24-48 hours prior to presentation and also had slurred speech. He was evaluated in the ER and and diagnosed with CVA. Patient had brain imaging that showed acute infarct on the right side gangliocapsular region. Neurology was consulted. Echocardiogram performed showed no shunt, PFO or thrombus. Patient was started on aspirin and statins. Patient has a history of diabetes but is not on any medications. Patient was started on Humulin 70/30 8 units twice a day with a sliding scale. Hemoglobin A1c showed uncontrolled diabetes-9.5. Patient has been advised on need to adhere to diabetic diet. Patient had a physical therapy performed that suggested the patient needs acute rehab placement. 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 Instead patient will be going home with home health. Patient is currently stable to be discharged. He will follow-up with neurology in the office. He has been advised to continue taking his medications as prescribed. He agrees with management Disposition: [id number] HOME UNDER HOME HLTH - Discharge Diagnoses (1) CVA (cerebral vascular accident) Status: Acute (2) Diabetes Status: Acute Core Measure Documentation - Palliative Care Palliative Care/ Comfort Measures: Not Applicable - Core Measures Any of the following diagnoses?: none Exam - Physical Exam Narrative exam: VITAL SIGNS: Reviewed. GENERAL: Awake and alert on response to questions HEAD: No signs of head trauma. EYES: Pupils are equal. Extraocular motions intact. EARS: Hearing grossly intact. MOUTH: Oropharynx is normal. NECK: No adenopathy, no JVD. CHEST: Chest with diminished breath sounds bilaterally. No wheezes, rales, or rhonchi. CARDIAC: Regular rate and rhythm. S1 and S2, without murmurs, gallops, or rubs. VASCULAR: No Edema. Peripheral pulses normal and equal in all extremities. ABDOMEN: Soft, non tender and non distended. No rebound or guarding, and no masses palpated. Bowel Sounds normal. MUSCULOSKELETAL: Good range of motion of all major joints. Extremities without clubbing, cyanosis or edema. NEUROLOGIC EXAM: Alert and oriented x3. Left sided weakness - Power 4/5 on the LUE and LLE PSYCHIATRIC: Stable mood SKIN: No obvious lesions - Constitutional Vitals: Temp Pulse Resp BP Pulse Ox 97.7 F 86 18 147/94 100 06/17/20 07:48 06/17/20 07:48 06/17/20 07:48 06/17/20 07:48 06/17/20 07:48 Plan Activity: no restrictions Diet: diabetic Additional Instructions: Continue medications as prescribed. Continue insulin 8units twice a day. Follow up with your primary medical doctor in 1-2 weeks. Follow-up with neurology in the office in a week [facility] [Primary Care Provider[facility] - 3-5 Days BRANT MACIAS MD [Staff Physician] - 7 Days Prescriptions: AtorvaSTATin [Lipitor] 80 mg PO QHS #60 tablet Aspirin EC [Ecotrin] 325 mg PO QDAY #30 tablet. Insulin NPH/Regular [NovoLIN 70/30] 8 unit SUB-Q BIDDIAB 30 Days #10 ml
[2020-06-17 18:38] VITALS: BP 148/89
== END 2020-06-17 18:00 | disposition home health service (06) | DRG 65 ==
LOC: ED 19:32 → 4A 23:40
PROVIDERS: ADMIT Internal Medicine; ATTEND Internal Medicine
DX: I63.89 Other cerebral infarction (principal); G81.94 Hemiplegia, unspecified affecting left nondominant side; E11.9 Type 2 diabetes mellitus without complications; I10 Essential (primary) hypertension; R47.81 Slurred speech; E78.5 Hyperlipidemia, unspecified; F10.10 Alcohol abuse, uncomplicated; Y90.9 Presence of alcohol in blood, level not specified; R29.707 NIHSS score 7; R47.1 Dysarthria and anarthria; R13.10 Dysphagia, unspecified; Z79.899 Other long term (current) drug therapy
CPT/HCPCS: 36415; 70450; 70496; 70498; 70551; 80048; 80053; 80061; 82550; 82553; 82962; 83036; 84484; 85025; 85379; 85610; 85670; 85730; 90686; 93005; 93306; 96372; G0378; A9270-GY; J1644; J1815; Q9967